=== PATIENT | female | born 1975 | race Caucasian/White ===

== ENCOUNTER 2017-09-26 15:10 | Emergency (ER) | payer MEDICAID ==
[~2017-09-26] VITALS: Ht 154.9 cm; Wt 60.0 kg
[~2017-09-26 15:10] MED LIST: MACROBID PO; NO HOME MEDS; PHEN-873 PO
[2017-09-26 15:17] VITALS: BP 137/75
[2017-09-26] MEDS ORDERED: LIDOcaine 1% 30ml preserv. free vial IJ ONE (16:35)
[2017-09-26] MEDS ORDERED: ibuprofen tablet 400 MG TABLET PO ONE (16:35)
== END 2017-09-26 17:43 | disposition home or self-care (01) ==
LOC: ER 15:10
DX: S52.502A Unspecified fracture of the lower end of left radius, initial encounter for closed fracture (principal); G43.909 Migraine, unspecified, not intractable, without status migrainosus; Z88.8 Allergy status to other drugs, medicaments and biological substances; Z79.899 Other long term (current) drug therapy; W07.XXXA Fall from chair, initial encounter; Y93.89 Activity, other specified; Y92.89 Other specified places as the place of occurrence of the external cause; Y99.8 Other external cause status
CPT/HCPCS: 25605; 73110; 99284; J3490

== ENCOUNTER 2017-10-04 10:50 | Outpatient (CLI) | payer MEDICAID ==
[2017-10-04 10:50] VITALS: BP 117/83
== END 2017-10-04 11:50 | disposition home or self-care (01) ==
LOC: ORTHO 10:50
PROVIDERS: ATTEND Nurse Practitioner Family
DX: S52.502A Unspecified fracture of the lower end of left radius, initial encounter for closed fracture (principal); S52.612A Displaced fracture of left ulna styloid process, initial encounter for closed fracture; M25.432 Effusion, left wrist; Z88.9 Allergy status to unspecified drugs, medicaments and biological substances; X58.XXXA Exposure to other specified factors, initial encounter; Y93.89 Activity, other specified; Y92.89 Other specified places as the place of occurrence of the external cause; Y99.8 Other external cause status
CPT/HCPCS: 29065; 73110; 99213; A4590

== ENCOUNTER 2017-10-25 09:34 | Outpatient (CLI) | payer MEDICAID | END 2017-10-25 10:15 | disposition home or self-care (01) | LOC: ORTHO 09:34 | PROVIDERS: ATTEND Nurse Practitioner Family | DX: S52.502D Unspecified fracture of the lower end of left radius, subsequent encounter for closed fracture with routine healing (principal); S52.612D Displaced fracture of left ulna styloid process, subsequent encounter for closed fracture with routine healing; G43.909 Migraine, unspecified, not intractable, without status migrainosus; Z87.440 Personal history of urinary (tract) infections; Z88.5 Allergy status to narcotic agent; X58.XXXD Exposure to other specified factors, subsequent encounter | CPT/HCPCS: 29075; 73110; 99213; A4590 ==

== ENCOUNTER 2017-11-15 10:16 | Outpatient (CLI) | payer MEDICAID | END 2017-11-15 10:48 | disposition home or self-care (01) | LOC: ORTHO 10:16 | PROVIDERS: ATTEND Nurse Practitioner Family | DX: S52.502D Unspecified fracture of the lower end of left radius, subsequent encounter for closed fracture with routine healing (principal); S52.612G Displaced fracture of left ulna styloid process, subsequent encounter for closed fracture with delayed healing; M25.432 Effusion, left wrist; G43.909 Migraine, unspecified, not intractable, without status migrainosus; N39.0 Urinary tract infection, site not specified; Z88.5 Allergy status to narcotic agent; X58.XXXD Exposure to other specified factors, subsequent encounter | CPT/HCPCS: 29260; 73110; 99213 ==

== ENCOUNTER 2017-12-07 08:50 | Outpatient (CLI) | payer MEDICAID ==
[2017-12-07 09:01] VITALS: BP 108/61
== END 2017-12-07 09:40 | disposition home or self-care (01) ==
LOC: ORTHO 08:50
PROVIDERS: ATTEND Nurse Practitioner Family
DX: S52.502D Unspecified fracture of the lower end of left radius, subsequent encounter for closed fracture with routine healing (principal); S52.615D Nondisplaced fracture of left ulna styloid process, subsequent encounter for closed fracture with routine healing; Z87.440 Personal history of urinary (tract) infections; Z88.8 Allergy status to other drugs, medicaments and biological substances; X58.XXXD Exposure to other specified factors, subsequent encounter
CPT/HCPCS: 73110; 99213

== ENCOUNTER 2018-03-04 07:59 | Emergency (ER) | payer MEDICAID ==
[~2018-03-04] VITALS: Ht 160 cm; Wt 67.0 kg
[2018-03-04 08:06] VITALS: BP 117/66
[2018-03-04] MEDS ORDERED: ketorolac trometh inj. 60 MG/2 ML VIAL IM ONE (08:40)
[2018-03-04 09:37] LABS: URINE HCG NEGATIVE (NEG)
[2018-03-04] MEDS ORDERED: IBUP-1984 PO (10:19)
== END 2018-03-04 11:56 | disposition home or self-care (01) ==
LOC: ER 07:59
DX: S32.19XA Other fracture of sacrum, initial encounter for closed fracture (principal); M53.3 Sacrococcygeal disorders, not elsewhere classified; G43.909 Migraine, unspecified, not intractable, without status migrainosus; Z98.51 Tubal ligation status; Z88.5 Allergy status to narcotic agent; W10.8XXA Fall (on) (from) other stairs and steps, initial encounter; Y93.01 Activity, walking, marching and hiking; Y92.89 Other specified places as the place of occurrence of the external cause; Y99.9 Unspecified external cause status
CPT/HCPCS: 72192; 72220; 81025; 99285; J1885; 99284